=== PATIENT | female | born 1985 | race Caucasian/White ===

== ENCOUNTER 2017-03-06 11:32 | Inpatient (IN) | payer BC ==
[2017-03-06] MEDS ORDERED: Sodium Chloride 0.9% 10 ML Syringe FLUSH PRN (13:10)
[2017-03-06] MEDS ORDERED: Carboprost Tromethamine 250 MCG/1 ML Amp IM PRN (13:10)
[2017-03-06] MEDS ORDERED: Misoprostol 200 MCG Tab PO PRN (13:10)
[2017-03-06] MEDS ORDERED: Methylergonovine 0.2 MG/1 ML Amp IM PRN (13:10)
[2017-03-06] MEDS ORDERED: Butorphanol 1 MG/ML SDV IVPUSH PRN (13:10)
[2017-03-06] MEDS ORDERED: Lidocaine 1% 50 ML MDV INJECT PRN (13:10)
[2017-03-06] MEDS ORDERED: Nalbuphine 10 MG/1 ML Vial IVPUSH PRN (13:10)
[2017-03-06] MEDS ORDERED: Water For Irrigation,Sterile 1,000 ML Container IRR PRN (13:10)
[2017-03-06] MEDS ORDERED: Sodium Chloride 0.9% 2.5 ML Syringe FLUSH PRN (13:10)
[2017-03-06] MEDS ORDERED: Terbutaline 1 MG/ML SDV SUBCUT PRN (13:12)
[2017-03-06] MEDS ORDERED: Oxytocin/0.9 % Sodium Chloride 30 UNIT/500 ML BAG IV SCH (13:15)
[2017-03-06] MEDS: Clindamycin Phosphate in D5W 900 MG in Premix Bag 1 BAG IV SCH ×4 (13:36→21:29)
[2017-03-06] MEDS: Lactated Ringers 1,000 ML IV SCH ×4 (15:20→21:32)
[2017-03-06] MEDS ORDERED: fentaNYL 100 MCG/2 ML SDV ONE (19:11)
[2017-03-06] MEDS ORDERED: Ropivacaine 0.2% 2 MG/ML 20 ML SDV ONE (19:13)
[2017-03-06] MEDS ORDERED: Ropivacaine HCl/PF 100 ML ONE (19:13)
--- NOTE | 2017-03-06 20:06 | PCM.PREANE ---
Preanesthetic Assessment - Anesthesia/Transfusion/Family Hx Anesthesia History: Prior Anesthesia Reaction Other Type of Anesthesia Reaction Comment: hx: motion sickness, some nausea post anesthesia Family History of Anesthesia Reaction: No Transfusion History: No Prior Transfusion(s) - Review of Systems General: No Symptoms Pulmonary: No Symptoms Cardiovascular: No Symptoms Gastrointestinal: No Symptoms, Other (heartburn. takes prilosec) Other: Reports: None (Denies any personal or family hx of bleeding or clotting problems) - Physical Assessment Height: 1.6 m Weight: 68.039 kg ASA Class: 2 Mental Status: Alert & Oriented x3 Airway Class: Mallampati = 2 Dentition: Reports: Normal Dentition ROM/Head Extension: Full - Lab Values: Laboratory Last Values WBC 11.67 K/uL (4.0-11.0) H 03/06/17 13:25 RBC 4.12 M/uL (4.30-5.90) L 03/06/17 13:25 Hgb 13.4 g/dL (12.0-16.0) 03/06/17 13:25 Hct 38.6 % (36.0-46.0) 03/06/17 13:25 MCV 93.7 fL (80.0-98.0) 03/06/17 13:25 MCH 32.5 pg (27.0-32.0) H 03/06/17 13:25 MCHC 34.7 g/dL (31.0-37.0) 03/06/17 13:25 RDW Std Deviation 47.6 fl (28.0-62.0) 03/06/17 13:25 RDW Coeff of Franklin 14 % (11.0-15.0) 03/06/17 13:25 Plt Count 211 K/uL (150-400) 03/06/17 13:25 MPV 10.80 fL (7.40-12.00) 03/06/17 13:25 Nucleated RBC % 0.0 /100WBC 03/06/17 13:25 Nucleated RBCs # 0 K/uL 03/06/17 13:25 Membrane Rupture NEGATIVE 03/06/17 11:52 Blood Type O POSITIVE 03/06/17 13:25 Antibody Screen NEGATIVE 03/06/17 13:25 - Allergies Allergies/Adverse Reactions: Allergies Allergy/AdvReac Type Severity Reaction Status Date / Time Penicillins Allergy Hives Verified 02/01/14 18:12 - Acknowledgements Anesthesia Type Planned: Epidural Pt an Appropriate Candidate for the Planned Anesthesia: Yes Alternatives and Risks of Anesthesia Discussed w Pt/Guardian: Yes Pt/Guardian Understands and Agrees with Anesthesia Plan: Yes PreAnesthesia Questionnaire 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 History: Reports: Endometriosis, Spontaneous Endocrine/Metabolic History: Reports: Hypothyroidism - Infectious Disease History Infectious Disease History: Reports: Chicken Pox, Mononucleosis - Past Surgical History HEENT Surgical History: Reports: LASIK, Other (See Below) Other HEENT Surgeries/Procedures: wisdom teeth extraction Female Surgical History: Reports: Dilitation & Evacuation, Other (See Below) (Laparoscopy, egg retrieval) - SUBSTANCE USE Smoking Status *Q: Never Smoker Second Hand Smoke Exposure: No Days Per Week of Alcohol Use: 0 Number of Drinks Per Day: 0 Total Drinks Per Week: 0 Recreational Drug Use History: No - HOME MEDS Home Medications: Home Meds Vit No.78/Iron/Fa [Prenatabs FA] 1 tab PO DAILY 02/01/14 [History] - CURRENT (IN HOUSE) MEDS Current Meds: Current Medications Butorphanol Tartrate (Stadol) 1 mg IVPUSH Q1H PRN PRN Reason: Pain Carboprost Tromethamine (Hemabate Ds) 250 mcg IM ASDIRECTED PRN PRN Reason: Post Hemorrhage Lactated Ringer's (Ringers, Lactated) 1,000 mls @ 150 mls/hr IV ASDIRECTED ELBA Last Admin: 03/06/17 19:54 Dose: 999 mls/hr Oxytocin/Sodium Chloride (Oxytocin 30 Unit/500 Ml-Ns) 30 unit in 500 mls @ 2 mls/hr IV TITRATE ELBA; 2 MUNITS/MIN PRN Reason: Protocol Last Titration: 03/06/17 18:22 Dose: 16 munits/min, 16 mls/hr Clindamycin Phosphate 900 mg/ (Premix) 50 mls @ 100 mls/hr IV Q8H ELBA Last Admin: 03/06/17 13:36 Dose: 100 mls/hr Lidocaine HCl (Xylocaine 1%) 50 ml INJECT .ONCE PRN PRN Reason: Laceration repair Methylergonovine Maleate (Methergine) 0.2 mg IM ASDIRECTED PRN PRN Reason: Post Hemorrhage Misoprostol (Cytotec) 200 mcg PO .ONCE PRN PRN Reason: Post Hemorrhage Nalbuphine HCl (Nubain) 10 mg IVPUSH Q1H PRN PRN Reason: Pain (severe 7-10) Sodium Chloride (Saline Flush) 10 ml FLUSH ASDIRECTED PRN PRN Reason: Keep Vein Open Sodium Chloride (Saline Flush) 2.5 ml FLUSH ASDIRECTED PRN PRN Reason: Keep Vein Open Sterile Water (Sterile Water For Irrigation) 1,000 ml IRR ASDIRECTED PRN PRN Reason: delivery Terbutaline Sulfate (Brethine) 0.25 mg SUBCUT ASDIRECTED PRN PRN Reason: Tacysystole Discontinued Medications Fentanyl (Sublimaze) Confirm Administered Dose 300 mcg .ROUTE .STK-MED ONE Stop: 03/06/17 19:12 Ropivacaine (Naropin 0.2%) Confirm Administered Dose 100 mls @ as directed .ROUTE .STK-MED ONE Stop: 03/06/17 19:14 Ropivacaine (Naropin 0.2%) Confirm Administered Dose 20 ml .ROUTE .STK-MED ONE Stop: 03/06/17 19:14
[2017-03-06] MEDS ORDERED: Citric Acid/Sodium Citrate Solution 30 ML Cup PO ONE (20:42)
[2017-03-07] MEDS ORDERED: Docusate Sodium 100 MG Cap PO PRN (01:17)
[2017-03-07] MEDS ORDERED: Witch Hazel Medicated Pads 40/Jar TOP PRN (01:17)
[2017-03-07] MEDS ORDERED: Lanolin 100% Cream 7 GM Tube TOP PRN (01:17)
[2017-03-07] MEDS ORDERED: Acetaminophen 500 MG Tab PO PRN ×2 (01:17)
[2017-03-07] MEDS ORDERED: oxyCODONE 5 MG Tab PO PRN (01:17)
[2017-03-07] MEDS ORDERED: Bisacodyl 10 MG Supp RECTAL PRN (01:17)
[2017-03-07] MEDS ORDERED: Benzocaine/Menthol 20%-0.5% Spray 78 GM Cannister TOP PRN (01:17)
[2017-03-07] MEDS ORDERED: Ibuprofen 400 MG Tab PO PRN (01:17)
[2017-03-07] MEDS ORDERED: Aluminum Hydroxide/Magnesium Hydroxide/Simethicone Susp 30 ML Cup PO PRN (01:19)
--- NOTE | 2017-03-07 02:07 | OR ---
SURGEON: Ling Xie M.D. DATE OF PROCEDURE: 03/07/2017 PREOPERATIVE DIAGNOSES: 1. 39 and 5-week intrauterine . 2. Induction of labor. 3. Group B beta Strep positive. POSTOPERATIVE DIAGNOSES: 1. 39 and 5-week intrauterine . 2. Induction of labor. 3. Group B beta Strep positive. PROCEDURE: 1. Spontaneous vaginal delivery. 2. Labial laceration repair. DIRECTOR GLOBAL: Scar Dasilva, MS-4. ANESTHESIA: Epidural. ESTIMATED BLOOD LOSS: 300 mL. COMPLICATION: None. FINDINGS: Term male, score of 8 at 1 minute and 9 at 5 minutes. Weight 3100 gm. Spontaneous delivery, intact placenta, 3-vessel cord. DISPOSITION: Mom in LDRP and in nursery. PROCEDURE DETAILS: [place] is a 31-year-old, G6, P0-0-6-0, at 39 and 4 weeks gestational age upon presentation on the afternoon of 03/06/2017 with possible leakage of fluid. AmniSure was negative. However, upon further discussion with the patient, she is scheduled for induction of labor next week given that she is 39+ weeks. In present day, option of staying for delivery was discussed with her, and she feels most comfortable at this time proceeding with induction today. Therefore, she was admitted, routine labs drawn, and IV clindamycin was initiated for group B beta Strep prophylaxis. She was initially found to be approximately 2 cm, 70% effaced, -2 station. Pitocin was initiated. After receiving clindamycin, approximately 4 hours after dosing, underwent amniotomy with clear fluid returning. At that time, she was found to be 2-3 cm, 70% effaced, -2 station. The patient became increasingly uncomfortable thereafter and then began making further cervical change. She underwent regional anesthesia from epidural, became more comfortable. heart tones were in the 120s, category I. The patient progressed to complete shortly before midnight and began pushing efforts. She pushed nicely to a +3 station. I was called for delivery. Upon my arrival, the patient was placed in modified dorsal lithotomy position and was prepped and draped in the usual aseptic manner. Continued with pushing efforts and was able to deliver the infant's head atraumatically spontaneously, followed by anterior shoulder, posterior shoulder, and remainder of the body without difficulty. The infant's oropharynx and nares were bulb suctioned. Cord was clamped x2 and cut. was handed off to his mother with attending nursing staff at her side. Cord arterial, cord venous, and cord blood sampling was obtained. Light suprapubic pressure was applied while the placenta was delivered spontaneously intact. Vigorous fundal uterine massage was then applied while 30 units of Pitocin was delivered in 500 mL of IV fluid. Upon inspection of the cervix, vaginal sidewalls, and perineum, there was found to be a right-sided labial laceration. This was repaired using 3-0 Vicryl in the usual fashion. There was a more superficial left labial near the hymen that was repaired and at approximately 7 o'clock of the hymen, there was a first-degree laceration that was repaired with [id number] suture. Hemostasis appeared evident. Uterus remained firm. Sponge count and needle count were correct. The patient tolerated the procedure well. She will remain in LDRP in stable condition, to nursery. BOO LUIS /[id number] ESPINOZA
[2017-03-07] MEDS: Ibuprofen 800 MG Tab PO PRN ×2 (08:55→21:02)
--- NOTE | 2017-03-07 09:52 | PCM.PNPP ---
- General Info Date of Service: 03/07/17 Subjective Update: Patient is doing well overall. She is ambulating, voiding, lochia is appropriate. has been going well. Pain is controlled overall. Functional Status: Reports: Pain Controlled, Tolerating Diet, Ambulating, Urinating - Review of Systems General: Denies: Fever, Weakness Cardiovascular: Denies: Chest Pain, Palpitations, Lightheadedness Gastrointestinal: Denies: Diarrhea, Nausea Genitourinary: Denies: Flank Pain Psychiatric: Reports: No Symptoms - General Info Date of Service: 03/07/17 - Patient Data Weight - Most Recent: 68.039 kg Lab Results - Last 24 Hours: Laboratory Results - last 24 hr 03/06/17 03/06/17 03/06/17 Range/Units 11:52 13:25 13:25 WBC 11.67 H (4.0-11.0) K/uL RBC 4.12 L (4.30-5.90) M/uL Hgb 13.4 (12.0-16.0) g/dL Hct 38.6 (36.0-46.0) % MCV 93.7 (80.0-98.0) fL MCH 32.5 H (27.0-32.0) pg MCHC 34.7 (31.0-37.0) g/dL RDW Std Deviation 47.6 (28.0-62.0) fl RDW Coeff of Franklin 14 (11.0-15.0) % Plt Count 211 (150-400) K/uL MPV 10.80 (7.40-12.00) fL Nucleated RBC % 0.0 /100WBC Nucleated RBCs # 0 K/uL Membrane Rupture NEGATIVE Blood Type O POSITIVE Antibody Screen NEGATIVE Med Orders - Current: Current Medications Acetaminophen (Tylenol Extra Strength) 500 mg PO Q4H PRN PRN Reason: Pain Acetaminophen (Tylenol Extra Strength) 1,000 mg PO Q4H PRN PRN Reason: Pain Last Admin: 03/07/17 03:56 Dose: 1,000 mg Al Hydroxide/Mg Hydroxide (Mag-Al Plus) 30 ml PO Q4H PRN PRN Reason: Heartburn Benzocaine/Menthol (Dermoplast Pain Relief 20%-0.5% [place]) 78 gm TOP ASDIRECTED PRN PRN Reason: Perineal Comfort Measure Last Admin: 03/07/17 03:57 Dose: 1 spray Bisacodyl (Dulcolax) 10 mg RECTAL .ONCE PRN PRN Reason: Constipation Carboprost Tromethamine (Hemabate Ds) 250 mcg IM ASDIRECTED PRN PRN Reason: Post Hemorrhage Docusate Sodium (Colace) 100 mg PO BID PRN PRN Reason: Constipation Emollient Ointment (Lansinoh Hpa) 0 gm TOP ASDIRECTED PRN PRN Reason: Sore Nipples Last Admin: 03/07/17 03:56 Dose: 1 applic Lactated Ringer's (Ringers, Lactated) 1,000 mls @ 150 mls/hr IV ASDIRECTED ELBA Last Admin: 03/06/17 21:32 Dose: 150 mls/hr Oxytocin/Sodium Chloride (Oxytocin 30 Unit/500 Ml-Ns) 30 unit in 500 mls @ 2 mls/hr IV TITRATE ELBA; 2 MUNITS/MIN PRN Reason: Protocol Last Titration: 03/06/17 18:22 Dose: 16 munits/min, 16 mls/hr Ibuprofen (Motrin) 400 mg PO Q4H PRN PRN Reason: Pain Ibuprofen (Motrin) 800 mg PO Q6H PRN PRN Reason: Pain Last Admin: 03/07/17 08:55 Dose: 800 mg Methylergonovine Maleate (Methergine) 0.2 mg IM ASDIRECTED PRN PRN Reason: Post Hemorrhage Oxycodone HCl (Oxycodone) 5 mg PO Q2H PRN PRN Reason: Pain Sodium Chloride (Saline Flush) 10 ml FLUSH ASDIRECTED PRN PRN Reason: Keep Vein Open Witch Yoli (Tucks) 1 pad TOP ASDIRECTED PRN PRN Reason: comfort care Last Admin: 03/07/17 03:57 Dose: 1 pad Discontinued Medications Butorphanol Tartrate (Stadol) 1 mg IVPUSH Q1H PRN PRN Reason: Pain Citric Acid/Sodium Citrate (Bicitra Solution) 30 ml PO ONETIME ONE Stop: 03/06/17 20:43 Last Admin: 03/06/17 20:51 Dose: 30 ml Fentanyl (Sublimaze) Confirm Administered Dose 300 mcg .ROUTE .STK-MED ONE Stop: 03/06/17 19:12 Clindamycin Phosphate 900 mg/ (Premix) 50 mls @ 100 mls/hr IV Q8H [facility] Last Admin: 03/06/17 21:29 Dose: 100 mls/hr Ropivacaine (Naropin 0.2%) Confirm Administered Dose 100 mls @ as directed .ROUTE .STK-MED ONE Stop: 03/06/17 19:14 Lidocaine HCl (Xylocaine 1%) 50 ml INJECT .ONCE PRN PRN Reason: Laceration repair Misoprostol (Cytotec) 200 mcg PO .ONCE PRN PRN Reason: Post Hemorrhage Nalbuphine HCl (Nubain) 10 mg IVPUSH Q1H PRN PRN Reason: Pain (severe 7-10) Ropivacaine (Naropin 0.2%) Confirm Administered Dose 20 ml .ROUTE .STK-MED ONE Stop: 03/06/17 19:14 Sodium Chloride (Saline Flush) 2.5 ml FLUSH ASDIRECTED PRN PRN Reason: Keep Vein Open Sterile Water (Sterile Water For Irrigation) 1,000 ml IRR ASDIRECTED PRN PRN Reason: delivery Last Admin: 03/07/17 00:59 Dose: 1,000 ml Terbutaline Sulfate (Brethine) 0.25 mg SUBCUT ASDIRECTED PRN PRN Reason: Tacysystole - Interaction Disposition, : [place] in Room with Family Infant Interaction: Holding Feeding: Breastfed Infant; Nursed Well Support Person: - Recovery Exam Fundal Tone: Firm Fundal Level: 2 Fingerbreadths Below Umbilicus Fundal Placement: Midline Lochia Amount: Small Lochia Color: Rubra/Red Perineum Description: Edematous Episiotomy/Laceration: Approximated Bladder Status: Voiding - Exam General: Alert, Oriented Lungs: Normal Respiratory Effort Cardiovascular: Regular Rate, Regular Rhythm GI/Abdominal Exam: Soft, Non-Tender Extremities: Pedal Edema (Trace) Psy/Mental Status: Alert, Normal Affect - Problem List & Annotations (1) Vaginal delivery SNOMED Code(s): 549429742 Code(s): O80 - ENCOUNTER FOR FULL-TERM UNCOMPLICATED DELIVERY Status: Acute Current Visit: Yes - Problem List Review Problem List Initiated/Reviewed/Updated: Yes - My Orders Last 24 Hours: My Active Orders 03/06/17 11:59 Non Stress Test [RC] PER UNIT ROUTINE Vaginal Exam [RC] Click to Edit Vital Signs [RC] PER UNIT ROUTINE Resuscitation Status Routine 03/06/17 13:10 Patient Status [ADT] Routine Heart Tones [RC] CONTINUOUS Carboprost Tromethamine [Hemabate DS] 250 mcg IM ASDIRECTED PRN Methylergonovine [Methergine] 0.2 mg IM ASDIRECTED PRN Sodium Chloride 0.9% [Saline Flush] 10 ml FLUSH ASDIRECTED PRN Peripheral IV Insertion Adult [OM.PC] Routine 03/06/17 13:12 Oxygen Therapy [RC] ASDIRECTED Vaginal Exam [RC] PRN Vital Signs [RC] PER UNIT ROUTINE 03/06/17 13:15 Lactated Ringers [Ringers, Lactated] 1,000 ml IV ASDIRECTED Oxytocin/0.9 % Sodium Chloride [Oxytocin 30 Unit/500 ML-NS] 30 unit in 500 ml IV TITRATE Medication Administration Instruction [OM.PC] Q3H 03/07/17 01:17 Acetaminophen [Tylenol Extra Strength] 1,000 mg PO Q4H PRN Acetaminophen [Tylenol Extra Strength] 500 mg PO Q4H PRN Benzocaine/Menthol [Dermoplast Pain Relief 20%-0.5% [place]] 78 gm TOP ASDIRECTED PRN Bisacodyl [Dulcolax] 10 mg RECTAL .ONCE PRN Docusate Sodium [Colace] 100 mg PO BID PRN Ibuprofen [Motrin] 400 mg PO Q4H PRN Ibuprofen [Motrin] 800 mg PO Q6H PRN Lanolin [Lansinoh HPA] See Dose Instructions TOP ASDIRECTED PRN Witch Yoli [Tucks] 1 pad TOP ASDIRECTED PRN oxyCODONE 5 mg PO Q2H PRN Breast Pump [WOMSER] Per Unit Routine 03/07/17 01:18 Patient Status [ADT] Routine May Shower [RC] ASDIRECTED Up ad Lexi [RC] ASDIRECTED Vital Signs [RC] PER UNIT ROUTINE Assess Lochia [WOMSER] Per Unit Routine Assess Uterine Involution [WOMSER] Per Unit Routine Ice Therapy [OM.PC] Per Unit Routine Perineal Care [OM.PC] Per Unit Routine Peripheral IV Discontinue [OM.PC] Routine Sitz Bath [OM.PC] Per Unit Routine 03/07/17 01:19 Alum Hydrox/Mag Hydrox/Simeth [Mag-Al Plus] 30 ml PO Q4H PRN 03/07/17 15:00 HEMOGLOBIN/HEMATOCRIT,HH [HEME] Routine 03/07/17 Breakfast Regular Diet [DIET] - Assessment Assessment:: PPD 1 status post /labial laceration repaired - Plan Plan:: Patient is doing well overall, continue PP cares. Dr Dutton will assume care of patient for the weekend.
--- NOTE | 2017-03-07 16:56 | PCM48HPAN ---
Post Anesthesia Note - EVALUATION WITHIN 48HRS OF ANESTHETIC Vital Signs in Normal Range: Yes Patient Participated in Evaluation: Yes Respiratory Function Stable: Yes Airway Patent: Yes Cardiovascular Function Stable: Yes Hydration Status Stable: Yes Pain Control Satisfactory: Yes Nausea and Vomiting Control Satisfactory: Yes Mental Status Recovered: Yes - COMMENTS/OBSERVATIONS Free Text/Narrative:: Pt denies problems. She reports full return of sensation and movement to lower extremities.
[2017-03-08 10:35] VITALS: BP 107/63
--- NOTE | 2017-03-08 11:04 | PCM.PNPP ---
- General Info Date of Service: 03/08/17 Admission Dx/Problem (Free Text): 31 yo P1 s/p stable , PPD2 Subjective Update: Patient is doing well overall. She is ambulating, voiding, lochia is appropriate. She complains of involuntary loss of urine this morning , denies dysuria , urgency, or suprapubic pain . Functional Status: Reports: Pain Controlled, Tolerating Diet, Ambulating, Urinating - Review of Systems General: Reports: No Symptoms HEENT: Reports: No Symptoms Pulmonary: Reports: No Symptoms Cardiovascular: Reports: No Symptoms Gastrointestinal: Reports: No Symptoms Genitourinary: Reports: No Symptoms Musculoskeletal: Reports: No Symptoms - General Info Date of Service: 03/08/17 - Patient Data Vital Signs - Most Recent: Last Vital Signs Temp 36.6 C 03/08/17 10:05 Pulse 91 03/08/17 10:05 Resp 16 03/08/17 10:05 BP 107/63 03/08/17 10:05 Pulse Ox 97 03/08/17 10:05 Weight - Most Recent: 68.039 kg Lab Results - Last 24 Hours: Laboratory Results - last 24 hr 03/07/17 Range/Units 15:02 Hgb 11.6 L (12.0-16.0) g/dL Hct 33.2 L (36.0-46.0) % Med Orders - Current: Current Medications Acetaminophen (Tylenol Extra Strength) 500 mg PO Q4H PRN PRN Reason: Pain Acetaminophen (Tylenol Extra Strength) 1,000 mg PO Q4H PRN PRN Reason: Pain Last Admin: 03/07/17 03:56 Dose: 1,000 mg Al Hydroxide/Mg Hydroxide (Mag-Al Plus) 30 ml PO Q4H PRN PRN Reason: Heartburn Benzocaine/Menthol (Dermoplast Pain Relief 20%-0.5% [place]) 78 gm TOP ASDIRECTED PRN PRN Reason: Perineal Comfort Measure Last Admin: 03/07/17 03:57 Dose: 1 spray Bisacodyl (Dulcolax) 10 mg RECTAL .ONCE PRN PRN Reason: Constipation Carboprost Tromethamine (Hemabate Ds) 250 mcg IM ASDIRECTED PRN PRN Reason: Post Hemorrhage Docusate Sodium (Colace) 100 mg PO BID PRN PRN Reason: Constipation Last Admin: 03/07/17 21:02 Dose: 100 mg Emollient Ointment (Lansinoh Hpa) 0 gm TOP ASDIRECTED PRN PRN Reason: Sore Nipples Last Admin: 03/07/17 03:56 Dose: 1 applic Lactated Ringer's (Ringers, Lactated) 1,000 mls @ 150 mls/hr IV ASDIRECTED ELBA Last Admin: 03/06/17 21:32 Dose: 150 mls/hr Oxytocin/Sodium Chloride (Oxytocin 30 Unit/500 Ml-Ns) 30 unit in 500 mls @ 2 mls/hr IV TITRATE ELBA; 2 MUNITS/MIN PRN Reason: Protocol Last Titration: 03/06/17 18:22 Dose: 16 munits/min, 16 mls/hr Ibuprofen (Motrin) 400 mg PO Q4H PRN PRN Reason: Pain Ibuprofen (Motrin) 800 mg PO Q6H PRN PRN Reason: Pain Last Admin: 03/07/17 21:02 Dose: 800 mg Methylergonovine Maleate (Methergine) 0.2 mg IM ASDIRECTED PRN PRN Reason: Post Hemorrhage Oxycodone HCl (Oxycodone) 5 mg PO Q2H PRN PRN Reason: Pain Sodium Chloride (Saline Flush) 10 ml FLUSH ASDIRECTED PRN PRN Reason: Keep Vein Open Witch Yoli (Tucks) 1 pad TOP ASDIRECTED PRN PRN Reason: comfort care Last Admin: 03/07/17 03:57 Dose: 1 pad Discontinued Medications Butorphanol Tartrate (Stadol) 1 mg IVPUSH Q1H PRN PRN Reason: Pain Citric Acid/Sodium Citrate (Bicitra Solution) 30 ml PO ONETIME ONE Stop: 03/06/17 20:43 Last Admin: 03/06/17 20:51 Dose: 30 ml Fentanyl (Sublimaze) Confirm Administered Dose 300 mcg .ROUTE .STK-MED ONE Stop: 03/06/17 19:12 Clindamycin Phosphate 900 mg/ (Premix) 50 mls @ 100 mls/hr IV Q8H ELBA Last Admin: 03/06/17 21:29 Dose: 100 mls/hr Ropivacaine (Naropin 0.2%) Confirm Administered Dose 100 mls @ as directed .ROUTE .STK-MED ONE Stop: 03/06/17 19:14 Lidocaine HCl (Xylocaine 1%) 50 ml INJECT .ONCE PRN PRN Reason: Laceration repair Misoprostol (Cytotec) 200 mcg PO .ONCE PRN PRN Reason: Post Hemorrhage Nalbuphine HCl (Nubain) 10 mg IVPUSH Q1H PRN PRN Reason: Pain (severe 7-10) Ropivacaine (Naropin 0.2%) Confirm Administered Dose 20 ml .ROUTE .[employer] ONE Stop: 03/06/17 19:14 Sodium Chloride (Saline Flush) 2.5 ml FLUSH ASDIRECTED PRN PRN Reason: Keep Vein Open Sterile Water (Sterile Water For Irrigation) 1,000 ml IRR ASDIRECTED PRN PRN Reason: delivery Last Admin: 03/07/17 00:59 Dose: 1,000 ml Terbutaline Sulfate (Brethine) 0.25 mg SUBCUT ASDIRECTED PRN PRN Reason: Tacysystole - Interaction Disposition, : [place] in Room with Family Infant Interaction: Holding Infant Infant Feeding: Breastfed Infant; Nursed Well Support Person: - Recovery Exam Fundal Tone: Firm Fundal Level: 1 Fingerbreadths Below Umbilicus Fundal Placement: Midline Lochia Amount: Scant Lochia Color: Rubra/Red Perineum Description: Intact, Minimal Bruising/Swelling Episiotomy/Laceration: Approximated Bladder Status: Voiding Urinary Elimination: Voided - Exam General: Alert, Oriented HEENT: Pupils Equal Lungs: Clear to Auscultation Cardiovascular: Regular Rate, Regular Rhythm GI/Abdominal Exam: Normal Bowel Sounds, Soft, Non-Tender Extremities: Normal Inspection - Problem List Review Problem List Initiated/Reviewed/Updated: Yes - Assessment Assessment:: PPD status post /labial laceration repaired - Plan Plan:: Patient informed to call [facility] if she continues to have incontinence. Overall patient is stable to go home Pain control as need, D/C home today. follow up in 6 weeks
== END 2017-03-08 15:48 | disposition home or self-care (01) | DRG 560 ==
LOC: MW.OBCHECK 11:32 → MW.OB 11:45 → MW.OBCHECK 13:10 → MW.OB 13:10 → OBSVTOIN 03-07 00:45
PROVIDERS: ADMIT Obstetrics & Gynecology; ATTEND Obstetrics & Gynecology
PROC: 10E0XZZ Delivery of Products of Conception, External Approach (ICD-10-PCS; principal; 2017-03-07)
PROC: 0HQ9XZZ Repair Perineum Skin, External Approach (ICD-10-PCS; 2017-03-07)
PROC: 3E033VJ Introduction of Other Hormone into Peripheral Vein, Percutaneous Approach (ICD-10-PCS; 2017-03-07)
PROC: 10907ZC Drainage of Amniotic Fluid, Therapeutic from Products of Conception, Via Natural or Artificial Opening (ICD-10-PCS; 2017-03-07)
DX: O70.0 First degree perineal laceration during delivery (principal); O09.813 Supervision of pregnancy resulting from assisted reproductive technology, third trimester; Z3A.39 39 weeks gestation of pregnancy; Z37.0 Single live birth
CPT/HCPCS: 01967; 36415; 59025; 59409; 84112; 85014; 85018; 85027; 86850; 86900; 86901; A9270-GY; J2590; J2795; J3010; J7120

== ENCOUNTER 2019-10-11 05:28 | Inpatient (IN) | payer BC ==
[2019-10-11] MEDS ORDERED: Sodium Chloride 0.9% 2.5 ML Syringe FLUSH PRN (05:31)
[2019-10-11] MEDS ORDERED: Clindamycin Phosphate in D5W 900 MG in Premix Bag 1 BAG IV ONE ×2 (05:31)
[2019-10-11] MEDS ORDERED: Ondansetron 4 MG/2 ML SDV IVPUSH PRN ×3 (05:31→09:12)
[2019-10-11] MEDS ORDERED: Sodium Chloride 0.9% 10 ML SDV IV PRN (05:31)
[2019-10-11] MEDS ORDERED: Citric Acid/Sodium Citrate Solution 30 ML Cup PO ONE (05:31)
[2019-10-11] MEDS ORDERED: Sodium Chloride 0.9% 10 ML Syringe FLUSH PRN (05:31)
[2019-10-11] MEDS ORDERED: Oxytocin/0.9 % Sodium Chloride 30 UNIT/500 ML BAG IV SCH (05:45)
[2019-10-11] MEDS: Lactated Ringers 1,000 ML IV SCH ×4 (06:41→17:25)
[2019-10-11] MEDS ORDERED: Morphine PF 10 MG/10 ML SDV ONE (07:21)
[2019-10-11] MEDS ORDERED: Oxytocin 10 Units/1 ML SDV ONE (07:21)
--- NOTE | 2019-10-11 07:22 | PCM.PREANE ---
Preanesthetic Assessment - Anesthesia/Transfusion/Family Hx Anesthesia History: Prior Anesthesia Reaction (nauzea) Other Type of Anesthesia Reaction Comment: states has nausea after surgical procedures Family History of Anesthesia Reaction: No Transfusion History: No Prior Transfusion(s) Intubation History: Unknown - Review of Systems General: No Symptoms Pulmonary: No Symptoms Cardiovascular: No Symptoms Gastrointestinal: No Symptoms Neurological: No Symptoms Other: Reports: None - Physical Assessment Height: 5 ft 3 in Weight: 72.575 kg ASA Class: 2 Mental Status: Alert & Oriented x3 Airway Class: Mallampati = 2 Dentition: Reports: Normal Dentition Thyro-Mental Finger Breadths: 3 Mouth Opening Finger Breadths: 3 ROM/Head Extension: Full Lungs: Clear to Auscultation, Normal Respiratory Effort Cardiovascular: Regular Rate, Regular Rhythm - Lab Values: Laboratory Last Values WBC 9.23 K/uL (4.0-11.0) 10/11/19 06:01 RBC 4.00 M/uL (4.30-5.90) L 10/11/19 06:01 Hgb 12.3 g/dL (12.0-16.0) 10/11/19 06:01 Hct 36.5 % (36.0-46.0) 10/11/19 06:01 MCV 91.3 fL (80.0-98.0) 10/11/19 06:01 MCH 30.8 pg (27.0-32.0) 10/11/19 06:01 MCHC 33.7 g/dL (31.0-37.0) 10/11/19 06:01 RDW Std Deviation 45.8 fl (28.0-62.0) 10/11/19 06:01 RDW Coeff of [place] 14 % (11.0-15.0) 10/11/19 06:01 Plt Count 239 K/uL (150-400) 10/11/19 06:01 MPV 11.80 fL (7.40-12.00) 10/11/19 06:01 Nucleated RBC % 0.0 /100WBC 10/11/19 06:01 Nucleated RBCs # 0 K/uL 10/11/19 06:01 - Allergies Allergies/Adverse Reactions: Allergies Allergy/AdvReac Type Severity Reaction Status Date / Time Penicillins Allergy Hives Verified 10/05/19 10:25 - Blood Blood Available: No - Anesthesia Plan Pre-Op Medication Ordered: None - Acknowledgements Anesthesia Type Planned: Spinal (general anesthesia back-up plan) Pt an Appropriate Candidate for the Planned Anesthesia: Yes Alternatives and Risks of Anesthesia Discussed w Pt/Guardian: Yes Pt/Guardian Understands and Agrees with Anesthesia Plan: Yes PreAnesthesia Questionnaire Other HEENT History: permanent upper dental retainer Cardiovascular History: Reports: None Respiratory History: Reports: None Gastrointestinal History: Reports: GERD Other Gastrointestinal History: heartburn with Genitourinary History: Reports: None 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: Reports: Endometriosis, , Spontaneous Musculoskeletal History: Reports: None Neurological History: Reports: None Psychiatric History: Reports: None Endocrine/Metabolic History: Reports: Hypothyroidism Hematologic History: Reports: None Immunologic History: Reports: None Oncologic (Cancer) History: Reports: None Dermatologic History: Reports: None - Infectious Disease History Infectious Disease History: Reports: Chicken Pox, Mononucleosis - Past Surgical History Head Surgeries/Procedures: Reports: None HEENT Surgical History: Reports: LASIK, Oral Surgery, Other (See Below) Other HEENT Surgeries/Procedures: wisdom teeth extraction Cardiovascular Surgical History: Reports: None Respiratory Surgical History: Reports: None GI Surgical History: Reports: None Female Surgical History: Reports: Breast Implant, Dilitation & Evacuation, Other (See Below) Other Female Surgeries/Procedures: laparoscopy with laser of endometriosis, IVF x3, breast augmentation Endocrine Surgical History: Reports: None Neurological Surgical History: Reports: None Musculoskeletal Surgical History: Reports: None Oncologic Surgical History: Reports: None Dermatological Surgical History: Reports: None - SUBSTANCE USE Smoking Status *Q: Never Smoker Second Hand Smoke Exposure: No Recreational Drug Use History: No - HOME MEDS Home Medications: Home Meds Vit No.78/Iron/Fa [Prenatabs FA] 1 tab PO DAILY 02/01/14 [History] Aspirin 81 mg PO DAILY 07/01/19 [History] Fish Oil/[place]-3 Fatty Acids [Fish Oil 1,000 MG] 1 each PO DAILY 07/01/19 [ History] Levothyroxine [Synthroid] 50 mcg PO ACBREAKFAST 07/01/19 [History] Omeprazole Magnesium [Prilosec Otc] 20 mg PO DAILY 09/28/19 [History] - CURRENT (IN HOUSE) MEDS Current Meds: Current Medications Lactated Ringer's (Ringers, Lactated) 1,000 mls @ 500 mls/hr IV BOLUS [facility] Last Admin: 10/11/19 06:41 Dose: 500 mls/hr Oxytocin/Sodium Chloride (Oxytocin 30 Unit/500 Ml-Ns) 30 unit in 500 mls @ 250 mls/hr IV TITRATE [facility] Ondansetron HCl (Zofran) 4 mg IVPUSH Q4H PRN PRN Reason: Nausea/Vomiting Sodium Chloride (Saline Flush) 10 ml FLUSH ASDIRECTED PRN PRN Reason: Keep Vein Open Sodium Chloride (Saline Flush) 2.5 ml FLUSH ASDIRECTED PRN PRN Reason: Keep Vein Open Sodium Chloride (Normal Saline) 10 ml IV ASDIRECTED PRN PRN Reason: IV Use Discontinued Medications Citric Acid/Sodium Citrate (Bicitra Solution) 30 ml PO ONETIME ONE Stop: 10/11/19 05:32 Clindamycin Phosphate 900 mg/ (Premix) 50 mls @ 100 mls/hr IV ASDIRECTED ONE Stop: 10/11/19 06:00
[2019-10-11] MEDS ORDERED: Phenylephrine 1% 10 MG/ML SDV ONE (07:25)
[2019-10-11] MEDS ORDERED: Ketorolac 30 MG/ML SDV ONE (08:19)
[2019-10-11] MEDS ORDERED: fentaNYL 100 MCG/2 ML SDV IVPUSH PRN (09:10)
[2019-10-11] MEDS ORDERED: Nalbuphine 10 MG/1 ML Vial IVPUSH PRN (09:10)
[2019-10-11] MEDS ORDERED: diphenhydrAMINE 50 MG/ML SDV IVPUSH PRN ×2 (09:10→09:12)
[2019-10-11] MEDS ORDERED: Acetaminophen/oxyCODONE 325-5 MG Tab PO PRN ×2 (09:10→09:12)
[2019-10-11] MEDS ORDERED: Naloxone 0.4 MG/ML Syringe IVPUSH PRN (09:10)
[2019-10-11] MEDS ORDERED: Lanolin 100% Cream 7 GM Tube TOP PRN (09:12)
[2019-10-11] MEDS ORDERED: Tranexamic Acid 1,000 MG in Sodium Chloride 0.9% 100 ML IV PRN (09:12)
[2019-10-11] MEDS ORDERED: Oxytocin 10 Units/1 ML SDV IM PRN (09:12)
[2019-10-11] MEDS ORDERED: Aluminum Hydroxide/Magnesium Hydroxide/Simethicone Susp 30 ML Cup PO PRN (09:12)
[2019-10-11] MEDS ORDERED: Bisacodyl 10 MG Supp RECTAL PRN (09:12)
[2019-10-11] MEDS ORDERED: Methylergonovine 0.2 MG/1 ML Amp IM PRN (09:12)
[2019-10-11] MEDS ORDERED: Misoprostol 200 MCG Tab RECTAL PRN (09:12)
[2019-10-11] MEDS ORDERED: Ketorolac 30 MG/ML SDV IVPUSH SCH (09:15)
--- NOTE | 2019-10-11 09:22 | PCM.OPNOTE ---
- General Post-Op/Procedure Note Date of Surgery/Procedure: 10/11/19 Operative Procedure(s): Primary LTCS Findings: Viable male APGARs 9, 9 weight 7 lb 9 oz. Intact placenta with 3V cord Pre Op Diagnosis: 39 week IUP. Breech presentation Post-Op Diagnosis: Same Anesthesia Technique: Spinal Primary Surgeon: Ling Xie Positive Printer Operator: Alicia Gong Fluid Replacement, Intraop: 1,000 (in OR) EBL in mLs: 600 Complications: none known Condition: Good Free Text/Narrative:: Dictation [id number]
[2019-10-11] MEDS: Simethicone 80 MG Tab.Chew PO SCH ×3 (12:24→23:54)
[2019-10-11] MEDS: Ketorolac 30 MG/ML SDV IVPUSH SCH ×2 (14:33→20:35)
--- NOTE | 2019-10-11 15:20 | OR ---
SURGEON: Ling Xie M.D. DATE OF PROCEDURE: 10/11/2019 PREOPERATIVE DIAGNOSES: 1. A 39-week intrauterine . 2. Breech presentation. POSTOPERATIVE DIAGNOSES: 1. A 39-week intrauterine . 2. Breech presentation. PROCEDURE: Primary low transverse section. PRIMARY SURGEON: Ling Xie MD PROVIDER RELATIONS CONSULTANT: Kathi Gong. ANESTHESIA: Spinal. ESTIMATED BLOOD LOSS: 600 mL. FLUIDS: 1000 mL of crystalloid in OR. COMPLICATIONS: None known. FINDINGS: Viable male. score of 9 at one minute and 9 at five minutes. Weight of 7 pounds 9 ounces. Intact placenta, 3-vessel cord. Normal-appearing pelvis. DISPOSITION: to nursery, mom to PACU, stable. PROCEDURE DETAILS: Asia is a 34-year-old female who presents today for scheduled delivery due to breech presentation. The risks of procedure have been discussed with proper consent obtained. The patient was taken to the operating room where she underwent a spinal anesthetic, was placed in dorsal supine position with leftward tilt. SCDs to lower extremity. Alvarado to gravity. Was prepped and draped in usual sterile fashion. Received clindamycin prophylactically given penicillin allergy. Time-out was performed. Anesthesia was tested, found to be adequate. A Pfannenstiel skin incision was now created, carried down all the way to the rectus fascia, which was incised in the midline, lateralized on either side sharply and bluntly. Superior aspect of the fascia was tented upward, dissected sharply and bluntly away from underlying muscle. In similar aspect, this was performed with inferior aspect of the fascia. Rectus muscle was in midline. Peritoneum was entered. Rectus muscle was , peritoneum was along the midline. Uterine position, position all palpated. Self-retaining retractor was gently placed. Uterovesical reflection was visualized. Bladder flap was created sharply and bluntly. Bladder was mobilized away from lower uterine segment. Low transverse hysterotomy was now performed. Uterine cavity was entered with blunt-ended scalpel. Amniotomy was performed. Clear fluid was returned. Hysterotomy was now lateralized bluntly. Buttocks were flexed and delivered to the midline. Delivered followed by lower extremities; trunk; and upper extremities, right upper extremity followed by left. Flexion of the head with delivery of the head. 's oropharynx and nares were bulb suctioned. Infant was crying vigorously. After a delay, cord was clamped x2 and cut. Infant was handed off to attending nursery staff. Cord arterial, cord venous, cord blood sampling obtained. The placenta was now delivered. Uterine cavity was cleared of all clot and debris. No uterine anomalies were noted. Hysterotomy was repaired using 0 Vicryl in continuous running locked fashion followed by re-imbricating layer. There was area of uterine vessel bleeding along the left side which was plicated with a [id number] suture. Hemostasis thereafter evident. Posterior aspect of the uterus inspected. No defects or hematomas found be forming. Region was well irrigated, suction dried. The uterus returned to the abdominal cavity. Colonic gutters were cleared of all clot and debris, well irrigated, suction dried. Hysterotomy once again appeared hemostatic. Self- retaining retractor was now gently removed. Hysterotomy once again inspected, found to be hemostatic. The peritoneum and rectus muscles were now replicated using 0 Vicryl in inverted mattress suture technique. Anterior aspect of the muscle and posterior of the fascia were closely inspected. Any areas of oozing were cauterized. Rectus fascia was reapproximated using 0 Vicryl in continuous running fashion, beginning laterally on each side, meeting in the midline. Subcutaneous tissue was well irrigated, suction dried. Any areas of oozing were cauterized. Skin edges were reapproximated using 3-0 Vicryl on a Kapil needle in subcuticular fashion followed by half-inch Steri-Strips and Mastisol. Uterus remained firm, hemostasis evident. Sponge, instrument, and needle counts correct x2. The patient tolerated the procedure well overall. She will go to PACU in stable condition, to nursery. BOO / TOBY /[id number]
[2019-10-11] MEDS: Docusate Sodium 100 MG Cap PO SCH (20:35)
[2019-10-12] MEDS: Ketorolac 30 MG/ML SDV IVPUSH SCH ×2 (02:29→09:05)
[2019-10-12] MEDS: Simethicone 80 MG Tab.Chew PO SCH ×3 (06:04→18:39)
[2019-10-12] MEDS: Docusate Sodium 100 MG Cap PO SCH ×2 (09:06→20:07)
--- NOTE | 2019-10-12 09:38 | PCM.PNPP ---
- General Info Date of Service: 10/12/19 Functional Status: Reports: Pain Controlled, Tolerating Diet, Ambulating - Review of Systems General: Denies: Fever, Weakness, Fatigue Pulmonary: Denies: Shortness of Breath Cardiovascular: Denies: Chest Pain, Palpitations, Lightheadedness Gastrointestinal: Reports: Nausea (last night only), Vomiting (x 1 yesterday evening). Denies: Abdominal Pain Genitourinary: Denies: Flank Pain Musculoskeletal: Reports: No Symptoms Skin: Reports: No Symptoms Neurological: Reports: No Symptoms Psychiatric: Reports: No Symptoms - General Info Date of Service: 10/12/19 - Patient Data Vital Signs - Most Recent: Last Vital Signs Temp 36.4 C 10/12/19 03:00 Pulse 92 10/12/19 08:00 Resp 16 10/12/19 08:00 BP 122/61 10/12/19 08:00 Pulse Ox 100 10/12/19 08:00 Weight - Most Recent: 72.575 kg I&O - Last 24 Hours: Intake & Output 10/11/19 10/12/19 10/12/19 22:59 06:59 14:59 Intake Total 1045 Output Total 500 2550 Balance -500 -1505 Lab Results - Last 24 Hours: Laboratory Results - last 24 hr 10/12/19 Range/Units 06:08 Hgb 10.6 L (12.0-16.0) g/dL Hct 32.1 L (36.0-46.0) % Med Orders - Current: Current Medications Al Hydroxide/Mg Hydroxide (Mag-Al Plus) 30 ml PO Q8H PRN PRN Reason: Heartburn Bisacodyl (Dulcolax) 10 mg RECTAL ONETIME PRN PRN Reason: Constipation Diphenhydramine HCl (Benadryl) 25 mg IVPUSH Q6H PRN PRN Reason: Itching or Nausea Docusate Sodium (Colace) 100 mg PO BID [facility] Last Admin: 10/12/19 09:06 Dose: 100 mg Emollient Ointment (Lansinoh Hpa) 0 gm TOP ASDIRECTED PRN PRN Reason: Sore Nipples Fentanyl (Sublimaze) 50 mcg IVPUSH Q1H PRN PRN Reason: Pain (severe 7-10) Lactated Ringer's (Ringers, Lactated) 1,000 mls @ 500 mls/hr IV BOLUS [facility] Last Admin: 10/11/19 07:18 Dose: 500 mls/hr Oxytocin/Sodium Chloride (Oxytocin 30 Unit/500 Ml-Ns) 30 unit in 500 mls @ 250 mls/hr IV TITRATE [facility] Tranexamic Acid 1,000 mg/ (Sodium Chloride) 110 mls @ 660 mls/hr IV ONETIME PRN PRN Reason: Bleeding Lactated Ringer's (Ringers, Lactated) 1,000 mls @ 125 mls/hr IV ASDIRECTED [facility] Last Admin: 10/11/19 17:25 Dose: 125 mls/hr Ibuprofen (Motrin) 800 mg PO Q8H PRN PRN Reason: mild pain or fever Methylergonovine Maleate (Methergine) 0.2 mg IM ONETIME PRN PRN Reason: Excessive Vaginal Bleeding Misoprostol (Cytotec) 1,000 mcg RECTAL ONETIME PRN PRN Reason: excessive bleeding Nalbuphine HCl (Nubain) 5 mg IVPUSH ASDIRECTED PRN PRN Reason: Itching Ondansetron HCl (Zofran) 4 mg IVPUSH Q4H PRN PRN Reason: Nausea/Vomiting Last Admin: 10/11/19 15:08 Dose: 4 mg Ondansetron HCl (Zofran) 4 mg IVPUSH Q6H PRN PRN Reason: Nausea Ondansetron HCl (Zofran) 4 mg IVPUSH Q4H PRN PRN Reason: Nausea/Vomiting Oxycodone/Acetaminophen (Percocet 325-5 Mg) 2 tab PO Q6H PRN PRN Reason: Pain (moderate 4-6) Oxycodone/Acetaminophen (Percocet 325-5 Mg) 1 tab PO Q4H PRN PRN Reason: Pain (moderate 4-6) Oxycodone/Acetaminophen (Percocet 325-5 Mg) 2 tab PO Q4H PRN PRN Reason: Pain (moderate 4-6) Oxytocin (Pitocin) 10 unit IM ASDIRECTED PRN PRN Reason: Excessive Vaginal Bleeding Simethicone (Simethicone) 160 mg PO QID [facility] Last Admin: 10/12/19 06:04 Dose: 160 mg Sodium Chloride (Saline Flush) 10 ml FLUSH ASDIRECTED PRN PRN Reason: Keep Vein Open Sodium Chloride (Saline Flush) 2.5 ml FLUSH ASDIRECTED PRN PRN Reason: Keep Vein Open Sodium Chloride (Normal Saline) 10 ml IV ASDIRECTED PRN PRN Reason: IV Use Discontinued Medications Citric Acid/Sodium Citrate (Bicitra Solution) 30 ml PO ONETIME ONE Stop: 10/11/19 05:32 Last Admin: 10/11/19 21:50 Dose: Not Given Diphenhydramine HCl (Benadryl) 25 mg IVPUSH Q4H PRN PRN Reason: Itching Stop: 10/12/19 09:10 Clindamycin Phosphate 900 mg/ (Premix) 50 mls @ 100 mls/hr IV ASDIRECTED ONE Stop: 10/11/19 06:00 Last Admin: 10/11/19 21:50 Dose: Not Given Ketorolac Tromethamine (Toradol) Confirm Administered Dose 30 mg .ROUTE .STK- MED ONE Stop: 10/11/19 08:20 Ketorolac Tromethamine (Toradol) 30 mg IVPUSH Q6H [facility] Stop: 10/12/19 09:16 Last Admin: 10/11/19 21:50 Dose: Not Given Ketorolac Tromethamine (Toradol) 30 mg IVPUSH Q6H [facility] Stop: 10/12/19 08:31 Last Admin: 10/12/19 09:05 Dose: 30 mg Morphine Sulfate (Duramorph Pf) Confirm Administered Dose 10 mg .ROUTE .STK-MED ONE Stop: 10/11/19 07:22 Naloxone HCl (Narcan) 0.1 mg IVPUSH ONETIME PRN PRN Reason: Respiratory Depression Stop: 10/12/19 09:10 Oxytocin (Pitocin) Confirm Administered Dose 40 unit .ROUTE .STK-MED ONE Stop: 10/11/19 07:22 Phenylephrine HCl (Ken-Synephrine) Confirm Administered Dose 10 mg .ROUTE .STK- MED ONE Stop: 10/11/19 07:26 - Infant Interaction Support Person: - Recovery Exam Fundal Tone: Firm Fundal Level: 2 Fingerbreadths Below Umbilicus Fundal Placement: Midline Lochia Amount: Scant Lochia Color: Rubra/Red Perineum Description: Intact, Minimal Bruising/Swelling Episiotomy/Laceration: None Bladder Status: Indwelling Catheter in Place Urinary Elimination: Other (see below) Other Urinary Elimination, : Due to void - Exam General: Alert, Oriented Neck: Supple Lungs: Normal Respiratory Effort Cardiovascular: Regular Rate, Regular Rhythm GI/Abdominal Exam: Normal Bowel Sounds, Soft Skin: Warm, Dry, Intact Wound/Incisions: Dressing Dry and Intact Neurological: No New Focal Deficit Psy/Mental Status: Alert, Normal Affect, Normal Mood - Problem List & Annotations (1) Breech presentation delivered SNOMED Code(s): 599344085, 751144267 Code(s): O32.1XX0 - MATERNAL CARE FOR BREECH PRESENTATION, UNSP Status: Acute Current Visit: Yes (2) delivery indicated due to breech presentation SNOMED Code(s): 750295763, 396307701 Code(s): O32.1XX0 - MATERNAL CARE FOR BREECH PRESENTATION, UNSP Status: Acute Current Visit: Yes - Problem List Review Problem List Initiated/Reviewed/Updated: Yes - My Orders Last 24 Hours: My Active Orders 10/11/19 09:12 Patient Status [ADT] Routine Ambulate [RC] PER UNIT ROUTINE Intake and Output [RC] Q12H May Shower [RC] ASDIRECTED Notify Provider Intake and Out [RC] ASDIRECTED RT Incentive Spirometry [RC] Q2HWA Acetaminophen/oxyCODONE [Percocet 325-5 MG] 1 tab PO Q4H PRN Acetaminophen/oxyCODONE [Percocet 325-5 MG] 2 tab PO Q4H PRN Alum Hydrox/Mag Hydrox/Simeth [Mag-Al Plus] 30 ml PO Q8H PRN Ibuprofen [Motrin] 800 mg PO Q8H PRN Lanolin [Lansinoh HPA] See Dose Instructions TOP ASDIRECTED PRN Methylergonovine [Methergine] 0.2 mg IM ONETIME PRN Ondansetron [Zofran] 4 mg IVPUSH Q4H PRN Oxytocin [Pitocin] 10 unit IM ASDIRECTED PRN Tranexamic Acid [Cyklokapron] 1,000 mg Sodium Chloride 0.9% [Normal Saline] 100 ml IV ONETIME bisacodyL [Dulcolax] 10 mg RECTAL ONETIME PRN diphenhydrAMINE [Benadryl] 25 mg IVPUSH Q6H PRN miSOPROStoL [Cytotec] 1,000 mcg RECTAL ONETIME PRN Abdominal Binder [OM.PC] Routine Assess Lochia [WOMSER] Per Unit Routine Assess Uterine Involution [WOMSER] Per Unit Routine Breast Pump [WOMSER] Per Unit Routine Heat Therapy [OM.PC] Routine Ice Therapy [OM.PC] Routine Peripheral IV Discontinue [OM.PC] Routine Sequential Compression Device [OM.PC] Per Unit Routine 10/11/19 09:13 Antiembolic Devices [RC] PER UNIT ROUTINE 10/11/19 09:15 Lactated Ringers [Ringers, Lactated] 1,000 ml IV ASDIRECTED 10/11/19 12:00 Simethicone 160 mg PO QID 10/11/19 21:00 Docusate Sodium [Colace] 100 mg PO BID 10/11/19 Lunch Regular Diet [DIET] - Assessment Assessment:: POD 1status post Primary LTCS--breech presentation - Plan Plan:: Doing well overall. Encourage ambulation and may shower today. Continue postoperative cares.
[2019-10-12] MEDS: Acetaminophen/oxyCODONE 325-5 MG Tab PO PRN ×2 (12:10→16:08)
--- NOTE | 2019-10-12 12:29 | PCM48HPAN ---
Post Anesthesia Note - EVALUATION WITHIN 48HRS OF ANESTHETIC Vital Signs in Normal Range: Yes Patient Participated in Evaluation: Yes Respiratory Function Stable: Yes Airway Patent: Yes Cardiovascular Function Stable: Yes Hydration Status Stable: Yes Pain Control Satisfactory: Yes Nausea and Vomiting Control Satisfactory: Yes Mental Status Recovered: Yes Vital Signs: Last Vital Signs Temp 36.4 C 10/12/19 03:00 Pulse 92 10/12/19 08:00 Resp 16 10/12/19 08:00 BP 122/61 10/12/19 08:00 Pulse Ox 100 10/12/19 08:00
[2019-10-12] MEDS: Ibuprofen 800 MG Tab PO PRN (16:09)
[2019-10-13] MEDS: Simethicone 80 MG Tab.Chew PO SCH ×2 (00:01→06:07)
[2019-10-13] MEDS: Ibuprofen 800 MG Tab PO PRN ×2 (00:02→08:21)
[2019-10-13] MEDS: Acetaminophen/oxyCODONE 325-5 MG Tab PO PRN ×3 (00:03→08:21)
[2019-10-13] MEDS: Docusate Sodium 100 MG Cap PO SCH (08:20)
--- NOTE | 2019-10-13 08:29 | PCM.PNPP ---
- General Info Date of Service: 10/13/19 Functional Status: Reports: Pain Controlled, Tolerating Diet, Ambulating, Urinating - Review of Systems General: Denies: Fever, Weakness, Fatigue Pulmonary: Denies: Shortness of Breath Cardiovascular: Denies: Chest Pain, Palpitations, Lightheadedness Gastrointestinal: Denies: Abdominal Pain, Nausea, Vomiting Genitourinary: Denies: Flank Pain Musculoskeletal: Reports: No Symptoms Skin: Reports: No Symptoms Neurological: Reports: No Symptoms Psychiatric: Reports: No Symptoms - General Info Date of Service: 10/13/19 - Patient Data Vital Signs - Most Recent: Last Vital Signs Temp 36.2 C 10/13/19 04:00 Pulse 70 10/13/19 04:00 Resp 16 10/13/19 04:00 BP 107/57 L 10/13/19 04:00 Pulse Ox 97 10/13/19 04:00 Weight - Most Recent: 72.575 kg Lab Results - Last 24 Hours: Laboratory Results - last 24 hr 10/11/19 Range/Units 06:01 RPR Non-Reac (Non-Reac) Med Orders - Current: Current Medications Al Hydroxide/Mg Hydroxide (Mag-Al Plus) 30 ml PO Q8H PRN PRN Reason: Heartburn Bisacodyl (Dulcolax) 10 mg RECTAL ONETIME PRN PRN Reason: Constipation Diphenhydramine HCl (Benadryl) 25 mg IVPUSH Q6H PRN PRN Reason: Itching or Nausea Docusate Sodium (Colace) 100 mg PO BID [facility] Last Admin: 10/13/19 08:20 Dose: 100 mg Emollient Ointment (Lansinoh Hpa) 0 gm TOP ASDIRECTED PRN PRN Reason: Sore Nipples Fentanyl (Sublimaze) 50 mcg IVPUSH Q1H PRN PRN Reason: Pain (severe 7-10) Lactated Ringer's (Ringers, Lactated) 1,000 mls @ 500 mls/hr IV BOLUS [facility] Last Admin: 10/11/19 07:18 Dose: 500 mls/hr Oxytocin/Sodium Chloride (Oxytocin 30 Unit/500 Ml-Ns) 30 unit in 500 mls @ 250 mls/hr IV TITRATE [facility] Tranexamic Acid 1,000 mg/ (Sodium Chloride) 110 mls @ 660 mls/hr IV ONETIME PRN PRN Reason: Bleeding Lactated Ringer's (Ringers, Lactated) 1,000 mls @ 125 mls/hr IV ASDIRECTED [facility] Last Admin: 10/11/19 17:25 Dose: 125 mls/hr Ibuprofen (Motrin) 800 mg PO Q8H PRN PRN Reason: mild pain or fever Last Admin: 10/13/19 08:21 Dose: 800 mg Methylergonovine Maleate (Methergine) 0.2 mg IM ONETIME PRN PRN Reason: Excessive Vaginal Bleeding Misoprostol (Cytotec) 1,000 mcg RECTAL ONETIME PRN PRN Reason: excessive bleeding Nalbuphine HCl (Nubain) 5 mg IVPUSH ASDIRECTED PRN PRN Reason: Itching Ondansetron HCl (Zofran) 4 mg IVPUSH Q4H PRN PRN Reason: Nausea/Vomiting Last Admin: 10/11/19 15:08 Dose: 4 mg Ondansetron HCl (Zofran) 4 mg IVPUSH Q6H PRN PRN Reason: Nausea Ondansetron HCl (Zofran) 4 mg IVPUSH Q4H PRN PRN Reason: Nausea/Vomiting Oxycodone/Acetaminophen (Percocet 325-5 Mg) 2 tab PO Q6H PRN PRN Reason: Pain (moderate 4-6) Oxycodone/Acetaminophen (Percocet 325-5 Mg) 1 tab PO Q4H PRN PRN Reason: Pain (moderate 4-6) Last Admin: 10/13/19 08:21 Dose: 1 tab Oxycodone/Acetaminophen (Percocet 325-5 Mg) 2 tab PO Q4H PRN PRN Reason: Pain (moderate 4-6) Last Admin: 10/12/19 20:07 Dose: 2 tab Oxytocin (Pitocin) 10 unit IM ASDIRECTED PRN PRN Reason: Excessive Vaginal Bleeding Simethicone (Simethicone) 160 mg PO QID [facility] Last Admin: 10/13/19 06:07 Dose: 160 mg Sodium Chloride (Saline Flush) 10 ml FLUSH ASDIRECTED PRN PRN Reason: Keep Vein Open Sodium Chloride (Saline Flush) 2.5 ml FLUSH ASDIRECTED PRN PRN Reason: Keep Vein Open Sodium Chloride (Normal Saline) 10 ml IV ASDIRECTED PRN PRN Reason: IV Use Discontinued Medications Citric Acid/Sodium Citrate (Bicitra Solution) 30 ml PO ONETIME ONE Stop: 10/11/19 05:32 Last Admin: 10/11/19 21:50 Dose: Not Given Diphenhydramine HCl (Benadryl) 25 mg IVPUSH Q4H PRN PRN Reason: Itching Stop: 10/12/19 09:10 Clindamycin Phosphate 900 mg/ (Premix) 50 mls @ 100 mls/hr IV ASDIRECTED ONE Stop: 10/11/19 06:00 Last Admin: 10/11/19 21:50 Dose: Not Given Ketorolac Tromethamine (Toradol) Confirm Administered Dose 30 mg .ROUTE .STK- MED ONE Stop: 10/11/19 08:20 Ketorolac Tromethamine (Toradol) 30 mg IVPUSH Q6H [facility] Stop: 10/12/19 09:16 Last Admin: 10/11/19 21:50 Dose: Not Given Ketorolac Tromethamine (Toradol) 30 mg IVPUSH Q6H [facility] Stop: 10/12/19 08:31 Last Admin: 10/12/19 09:05 Dose: 30 mg Morphine Sulfate (Duramorph Pf) Confirm Administered Dose 10 mg .ROUTE .STK-MED ONE Stop: 10/11/19 07:22 Naloxone HCl (Narcan) 0.1 mg IVPUSH ONETIME PRN PRN Reason: Respiratory Depression Stop: 10/12/19 09:10 Oxytocin (Pitocin) Confirm Administered Dose 40 unit .ROUTE .STK-MED ONE Stop: 10/11/19 07:22 Phenylephrine HCl (Ken-Synephrine) Confirm Administered Dose 10 mg .ROUTE .STK- MED ONE Stop: 10/11/19 07:26 - Infant Interaction Support Person: - Recovery Exam Fundal Tone: Firm Fundal Level: 2 Fingerbreadths Below Umbilicus Fundal Placement: Midline Lochia Amount: Scant Lochia Color: Brownish Perineum Description: Intact, Minimal Bruising/Swelling Episiotomy/Laceration: None Bladder Status: Voiding Urinary Elimination: Other (see below) Other Urinary Elimination, : Due to void - Exam General: Alert, Oriented Lungs: Normal Respiratory Effort Cardiovascular: Regular Rate, Regular Rhythm GI/Abdominal Exam: Normal Bowel Sounds, Soft Extremities: Pedal Edema (trace). No: Nadia's Sign Skin: Warm, Dry, Intact Wound/Incisions: Healing Well, No Drainage. No: Erythema Neurological: No New Focal Deficit Psy/Mental Status: Alert, Normal Affect, Normal Mood - Problem List & Annotations (1) Breech presentation delivered SNOMED Code(s): 484596163, 630269473 Code(s): O32.1XX0 - MATERNAL CARE FOR BREECH PRESENTATION, UNSP Status: Acute Current Visit: Yes (2) delivery indicated due to breech presentation SNOMED Code(s): 978338776, 317952009 Code(s): O32.1XX0 - MATERNAL CARE FOR BREECH PRESENTATION, UNSP Status: Acute Current Visit: Yes - Problem List Review Problem List Initiated/Reviewed/Updated: Yes - My Orders Last 24 Hours: My Active Orders 10/13/19 08:26 Ready for Discharge [RC] PER UNIT ROUTINE - Assessment Assessment:: POD 2 status post Primary LTCS--breech presentation - Plan Plan:: Discharge to home today. Discharge instructions reviewed. Follow up at [facility] 2 and 6 weeks. Infection and bleeding warnings reviewed. Patient is comfortable with plan of care.
[2019-10-13 11:11] VITALS: BP 122/65; PULSE 78
== END 2019-10-13 10:47 | disposition home or self-care (01) | DRG 540 ==
LOC: MW.OB 05:28
PROVIDERS: ADMIT Obstetrics & Gynecology; ATTEND Obstetrics & Gynecology
PROC: 10D00Z1 Extraction of Products of Conception, Low, Open Approach (ICD-10-PCS; principal; 2019-10-11)
DX: O32.1XX0 Maternal care for breech presentation, not applicable or unspecified (principal); Z37.0 Single live birth; O99.824 Streptococcus B carrier state complicating childbirth; Z3A.39 39 weeks gestation of pregnancy
CPT/HCPCS: 01961; 36415; 51702; 59025; 82803; 85014; 85018; 85027; 86592; 86593; 86850; 86900; 86901; A9270-GY; J1885; J2270; J2370; J2405; J2590; J7120